=== PATIENT | male | born 1935 | race Caucasian/White ===

== ENCOUNTER → 2016-10-28 | Outpatient (REF) | payer MEDICARE, OTHER ==
[2016-10-28 12:53] LABS: ANION GAP 6 MEQ/L (8-16); BLOOD UREA NITROGEN 24 MG/DL (7-18); CALCIUM LEVEL 8.9 MG/DL (8.8-10.2); CARBON DIOXIDE LEVEL 32 MEQ/L (21-32); CHLORIDE LEVEL 103 MEQ/L (98-107); GLOMERULAR FILTRATION RATE > 60.0 (>42); GLUCOSE, FASTING 131 MG/DL (83-110); SODIUM LEVEL 141 MEQ/L (136-145)
== END ==
LOC: M SFHCPLAZ 07:51
PROVIDERS: ATTEND Family Medicine
DX: E11.311 Type 2 diabetes mellitus with unspecified diabetic retinopathy with macular edema (principal); Z12.5 Encounter for screening for malignant neoplasm of prostate
CPT/HCPCS: 36415; 80048; 83036; G0103

== ENCOUNTER → 2017-05-01 | Outpatient (REF) | payer MEDICARE, OTHER ==
[~2017-05-01] MED LIST: ASPI1TAB PO; CARV6.25 PO; COMB0.2S OD; INDA25TAB PO; INSUN SC; INSUR SC; LATA5OPD OU; LOVA40TA PO; MULT1TAB10 PO; NOVO1INJ4 SC; RAMI25CA PO; VITA500T PO
[2017-05-01 12:11] LABS: MEAN CORPUSCULAR HEMOGLOBIN 28.4 pg (27.0-33.0); MEAN CORPUSCULAR HGB CONC 34.2 g/dl (32.0-36.5); MEAN CORPUSCULAR VOLUME 82.9 fl (80.0-96.0); RED CELL DISTRIBUTION WIDTH 14.3 % (11.5-14.5); WHITE BLOOD COUNT 6.4 K/mm3 (4.0-10.0)
[2017-05-01 12:40] LABS: ALBUMIN/GLOBULIN RATIO 1.43 (1.00-1.93); ALKALINE PHOSPHATASE 112 U/L (45-117); ALT/SGPT 22 U/L (12-78); ANION GAP 7 MEQ/L (8-16); AST/SGOT 8 U/L (15-37); BILIRUBIN,TOTAL 1.1 MG/DL (0.2-1.0); BLOOD UREA NITROGEN 25 MG/DL (7-18); CALCIUM LEVEL 9.2 MG/DL (8.8-10.2); CARBON DIOXIDE LEVEL 31 MEQ/L (21-32); CHLORIDE LEVEL 102 MEQ/L (98-107); CHOLESTEROL LEVEL 109 MG/DL (<200); CREATININE FOR GFR 1.14 MG/DL (0.70-1.30); GLOMERULAR FILTRATION RATE > 60.0 (>42); GLUCOSE, FASTING 157 MG/DL (83-110); POTASSIUM SERUM 4.2 MEQ/L (3.5-5.1); SODIUM LEVEL 140 MEQ/L (136-145); TOTAL PROTEIN 6.8 GM/DL (6.4-8.2); TRIGLYCERIDES LEVEL 97 MG/DL (<150)
== END ==
LOC: M SFHCPLAZ 07:50
PROVIDERS: ATTEND Family Medicine
DX: I25.10 Atherosclerotic heart disease of native coronary artery without angina pectoris (principal); E78.2 Mixed hyperlipidemia; E11.311 Type 2 diabetes mellitus with unspecified diabetic retinopathy with macular edema

== ENCOUNTER 2017-05-20 08:08 | Day surgery (SDC) | payer MEDICARE, BC, OTHER ==
[~2017-05-20] VITALS: Ht 177.8 cm; Wt 101.2 kg
[~2017-05-20 08:08] MED LIST changes: +ACETAMINOPHEN 325 MG TAB PO PRN
[2017-05-20] MEDS ORDERED: LIDOCAINE 1% SDV 5 ML VIAL SC ONE (09:00)
[2017-05-20] MEDS: LIDOCAINE 3.5 % 1ML OPHTH TOPICAL GEL OU ONE (09:07)
[2017-05-20] MEDS: LR 500 ML IV ONE (09:08)
[2017-05-20] MEDS: CYCLOPENTOLATE 2% OPHTH SOLN 2ML BTL XX ONE (09:08)
[2017-05-20] MEDS: PHENYLEPHRINE 2.5% OPHTH SOL 2ML XX ONE (09:08)
[2017-05-20] MEDS: TROPICAMIDE 1% OPHTH SOLN 2ML XX ONE (09:08)
[2017-05-20] MEDS: OFLOXACIN 0.3 % (OCUFLOX) OPTH SOL 5ML XX ONE (09:08)
[2017-05-20] MEDS ORDERED: fentaNYL 100 MCG/2 ML INJECTION (J3010) As Ordered ONE (10:21)
[2017-05-20] MEDS ORDERED: MIDAZOLAM INJ 2 MG/2 ML VIAL (J2250) As Ordered ONE (10:21)
[2017-05-20] MEDS: POVIDONE-IODINE 5% OPHTH PREP SOL 30ML As Ordered ONE (10:37)
[2017-05-20] MEDS: LIDOCAINE 1% SDV 5 ML VIAL As Ordered ONE (10:37)
[2017-05-20] MEDS: BSS with VANC/TOB/EPI for EYE CASES IR ONE (10:38)
[2017-05-20] MEDS: CEFUROXIME 1MG/0.1ML INTRACAMERAL INJ As Ordered ONE (10:38)
[2017-05-20] MEDS: HEALON DUET (HEALON 10MG/ML 0.55ML & HEALON ENDOCOAT 30MG/ML 0.85ML) As Ordered ONE ×2 (10:38→10:39)
[2017-05-20] MEDS ORDERED: TRIMETHOBENZAMIDE 300 MG CAP PO PRN (11:00)
[2017-05-20] MEDS: PROPARACAINE 0.5% OPHTH SOL 15ML XX PRN (11:10)
[2017-05-20] MEDS: KETOROLAC 0.5% OPHTH SOLN XX ONE (11:10)
[2017-05-20] MEDS: AcetaZOLAMIDE 500 MG ER CAP PO ONE (11:10)
[2017-05-20 11:20] VITALS: BP 118/53
--- NOTE | 2017-05-21 13:17 | RO ---
DATE OF PROCEDURE: 05/20/2017 PREOPERATIVE DIAGNOSES: Cataract, glaucoma right eye. POSTOPERATIVE DIAGNOSES: Cataract, glaucoma right eye. PROCEDURE: SURGEON: Nanda Rob MD BUS GREASER: None. ANESTHESIA: Local, IV standby. COMPLICATIONS: None. DESCRIPTION OF PROCEDURE: The patient was brought to the operating room, laid in supine position. The right eye was prepped and draped in a sterile fashion for opthalmic surgery, and a lid speculum was placed. Sideport incision was then made, and EndoCoat was injected into the anterior chamber. A temporal clear corneal incision was then made with a 2.5 mm keratome, and capsulorrhexis was carried out. Patient had a very high posterior chamber pressure and also, because of hyperopia, the chamber was very shallow. At the end of the capsulorrhexis, hydrodissection and phacoemulsification was done in a [id number] method. Throughout the procedure, we had to use some extra Healon to maintain the chamber. At the end of the phacoemulsification, excess cortical material was then aspirated. Intraocular lens placed in the capsular bag. A small amount of zonular dialysis were noted for 1-1/2 to 2-o'clock hours inferiorly, and the lens as rotated so that the haptics were sitting along the axis of the zonular dialysis inferiorly. After this, Healon was placed in the ciliary sulcus; and under direct visualization, endocyclophotocoagulation done with the help of the EndoProbe at 0.25 mV for 280 degrees. Good results were noted as seen by shrinking of the ciliary processes. Healon was then placed into the anterior chamber to visualize the inferonasal trabecular meshwork and with the patient's head turned away from the surgeon under high magnification with the help of the goniolens, the iStent Glaukos was placed and good blood reflex was noted. Excess viscoelastic was then aspirated. Intraocular lens (IOL) was noted to be in excellent position. Wound was hydrated, and intracameral moxifloxacin was given at the end of the case. Wounds were tested for leaks, and no leaks were noted.
== END 2017-05-20 11:40 | disposition home or self-care (01) ==
LOC: M SDC 08:08
PROVIDERS: ATTEND Ophthalmology
DX: H26.9 Unspecified cataract (principal); H40.9 Unspecified glaucoma; I25.10 Atherosclerotic heart disease of native coronary artery without angina pectoris; I10 Essential (primary) hypertension; E11.9 Type 2 diabetes mellitus without complications; M12.9 Arthropathy, unspecified; Z79.899 Other long term (current) drug therapy; Z79.82 Long term (current) use of aspirin; Z79.4 Long term (current) use of insulin; Z87.891 Personal history of nicotine dependence; Z95.5 Presence of coronary angioplasty implant and graft

== ENCOUNTER → 2017-10-30 | Outpatient (REF) | payer MEDICARE, OTHER ==
[2017-10-30 12:24] LABS: ESTIMATED AVERAGE GLUCOSE 134 MG/DL (60-110); HEMOGLOBIN A1c 6.3 %
[2017-10-30 12:26] LABS: ALBUMIN/GLOBULIN RATIO 1.38 (1.00-1.93); ALKALINE PHOSPHATASE 116 U/L (45-117); ALT/SGPT 20 U/L (12-78); ANION GAP 2 MEQ/L (8-16); AST/SGOT 9 U/L (7-37); BILIRUBIN,TOTAL 0.8 MG/DL (0.2-1.0); BLOOD UREA NITROGEN 32 MG/DL (7-18); CALCIUM LEVEL 8.8 MG/DL (8.8-10.2); CARBON DIOXIDE LEVEL 35 MEQ/L (21-32); CHLORIDE LEVEL 103 MEQ/L (98-107); CHOLESTEROL LEVEL 106 MG/DL (<200); CHOLESTEROL RISK RATIO 3.212 (<5); CREATININE FOR GFR 1.19 MG/DL (0.70-1.30); GLOMERULAR FILTRATION RATE > 60.0 (>35); GLUCOSE, FASTING 124 MG/DL (70-100); HDL CHOLESTEROL 33 MG/DL (>40); LDL CHOLESTEROL 55.4 MG/DL (<100); NON-HDL-C 73 MG/DL; POTASSIUM SERUM 3.9 MEQ/L (3.5-5.1); PSA SCREENING 3.42 NG/ML (< 4.0); SODIUM LEVEL 140 MEQ/L (136-145); TOTAL PROTEIN 6.9 GM/DL (6.4-8.2); TRIGLYCERIDES LEVEL 88 MG/DL (<150)
== END ==
LOC: M SFHCPLAZ 07:35
DX: E11.311 Type 2 diabetes mellitus with unspecified diabetic retinopathy with macular edema (principal); I25.10 Atherosclerotic heart disease of native coronary artery without angina pectoris; Z12.5 Encounter for screening for malignant neoplasm of prostate
CPT/HCPCS: 80053

== ENCOUNTER → 2017-11-09 | Outpatient (REF) | payer MEDICARE, OTHER ==
[2017-11-09 12:31] LABS: CREATININE, URINE 70.6 MG/DL; MALB URINE SIEMENS 8.2 MG/L; MAU/CREAT RATIO 11.6 MCG/MG (0.0-30.0)
== END ==
LOC: M SFHCPLAZ 11:27
DX: E11.311 Type 2 diabetes mellitus with unspecified diabetic retinopathy with macular edema (principal)
CPT/HCPCS: 82043

== ENCOUNTER → 2018-05-26 | Outpatient (REF) | payer MEDICARE, OTHER ==
[2018-05-26 12:31] LABS: ANION GAP 9 MEQ/L (8-16); BLOOD UREA NITROGEN 24 MG/DL (7-18); CALCIUM LEVEL 8.8 MG/DL (8.8-10.2); CARBON DIOXIDE LEVEL 28 MEQ/L (21-32); CHLORIDE LEVEL 103 MEQ/L (98-107); CREATININE FOR GFR 1.22 MG/DL (0.70-1.30); GLOMERULAR FILTRATION RATE > 60.0 (>35); GLUCOSE, FASTING 162 MG/DL (70-100); POTASSIUM SERUM 3.7 MEQ/L (3.5-5.1); SODIUM LEVEL 140 MEQ/L (136-145)
[2018-05-26 16:45] LABS: ESTIMATED AVERAGE GLUCOSE 134 MG/DL (60-110); HEMOGLOBIN A1c 6.3 %
== END ==
LOC: M SFHCCLAY 07:14
DX: E11.311 Type 2 diabetes mellitus with unspecified diabetic retinopathy with macular edema (principal)
CPT/HCPCS: 83036

== ENCOUNTER → 2018-11-23 | Outpatient (REF) | payer MEDICARE, OTHER ==
[~2018-11-23] MED LIST changes: -ACETAMINOPHEN 325 MG TAB PO PRN; +RAMI1CAP22 PO; -RAMI25CA PO
[2018-11-23 11:52] LABS: HEMATOCRIT 45.7 % (42.0-52.0); HEMOGLOBIN 14.9 g/dl (13.5-17.5); MEAN CORPUSCULAR HGB CONC 32.6 g/dl (32.0-36.5); MEAN CORPUSCULAR VOLUME 82.9 fl (80.0-96.0); PLATELET COUNT, AUTOMATED 168 10^3/uL (150-450); RED BLOOD COUNT 5.51 10^6/uL (4.30-6.10)
[2018-11-23 12:05] LABS: ALBUMIN 3.9 GM/DL (3.2-5.2); ALT/SGPT 24 U/L (12-78); BILIRUBIN,TOTAL 0.6 MG/DL (0.2-1.0); BLOOD UREA NITROGEN 25 MG/DL (7-18); CALCIUM LEVEL 8.9 MG/DL (8.8-10.2); CARBON DIOXIDE LEVEL 32 MEQ/L (21-32); CHLORIDE LEVEL 104 MEQ/L (98-107); CHOLESTEROL LEVEL 118 MG/DL (<200); CHOLESTEROL RISK RATIO 4.068 (<5); CREATININE FOR GFR 1.19 MG/DL (0.70-1.30); GLOMERULAR FILTRATION RATE > 60.0 (>35); GLUCOSE, FASTING 138 MG/DL (70-100); HDL CHOLESTEROL 29 MG/DL (>40); LDL CHOLESTEROL 68 MG/DL (<100); NON-HDL-C 89 MG/DL; POTASSIUM SERUM 4.1 MEQ/L (3.5-5.1); SODIUM LEVEL 140 MEQ/L (136-145); TOTAL PROTEIN 6.9 GM/DL (6.4-8.2); TRIGLYCERIDES LEVEL 105 MG/DL (<150)
[2018-11-23 13:37] LABS: HEMOGLOBIN A1c 6.9 %
== END ==
LOC: M SFHCCLAY 07:11
PROVIDERS: ATTEND Family Medicine
DX: Z12.5 Encounter for screening for malignant neoplasm of prostate (principal); I25.10 Atherosclerotic heart disease of native coronary artery without angina pectoris; E11.311 Type 2 diabetes mellitus with unspecified diabetic retinopathy with macular edema; E11.649 Type 2 diabetes mellitus with hypoglycemia without coma
CPT/HCPCS: 80053; 80061; 83036; 85027; G0103

== ENCOUNTER → 2019-05-25 | Outpatient (REF) | payer MEDICARE, OTHER ==
[~2019-05-25] MED LIST changes: -ASPI1TAB PO; +ASPI81TA26 PO; +LATA0.0013 OU; -LATA5OPD OU
[2019-05-25 11:44] LABS: CALCIUM LEVEL 9.2 MG/DL (8.8-10.2); CREATININE FOR GFR 1.29 MG/DL (0.70-1.30); GLOMERULAR FILTRATION RATE 56.9 (>35); POTASSIUM SERUM 3.9 MEQ/L (3.5-5.1)
[2019-05-25 12:06] LABS: HEMOGLOBIN A1c 6.6 %
[2019-05-25 12:50] LABS: CREATININE, URINE 68.6 MG/DL; MALB URINE SIEMENS 47.6 MG/L; MAU/CREAT RATIO 69.3 MCG/MG (0.0-30.0)
== END ==
LOC: M SFHCCLAY 08:27
PROVIDERS: ATTEND Family Medicine
DX: E11.311 Type 2 diabetes mellitus with unspecified diabetic retinopathy with macular edema (principal)

== ENCOUNTER 2019-07-09 11:26 | Day surgery (SDC) | payer MEDICARE, BC, OTHER ==
[~2019-07-09] VITALS: Ht 177.8 cm; Wt 100.6 kg
[2019-07-09] MEDS ORDERED: COMB0.2S OP (11:45)
[2019-07-09] MEDS ORDERED: XALA0.007 OS (11:45)
[2019-07-09] MEDS ORDERED: NOVO1INJ4 SC (11:45)
--- NOTE | 2019-07-09 12:04 | REP ---
Clinical: Acute chest pain . Comparison: 07/25/2008 . Findings: The mediastinum and cardiac silhouette are stable and within normal limits for portable technique. Prior sternotomy. The lung mock demonstrate chronic bibasilar changes without acute consolidation, effusion, or pneumothorax. Skeletal structures are intact. Impression: Chronic-appearing changes. Electronically Signed by He Valencia MD 07/09/2019 11:56 A
[2019-07-09 12:17] LABS: BASO # 0.1 10^3/uL (0.0-0.2); BASO % 0.9 % (0.0-1.0); EOS # 0.2 10^3/uL (0.0-0.5); HEMATOCRIT 48.8 % (42.0-52.0); HEMOGLOBIN 16.1 g/dl (13.5-17.5); LYMPH # 0.9 10^3/uL (1.5-5.0); LYMPH % 11.6 % (24.0-44.0); MEAN CORPUSCULAR HEMOGLOBIN 27.6 pg (27.0-33.0); MEAN CORPUSCULAR VOLUME 83.6 fl (80.0-96.0); MONO # 0.5 10^3/uL (0.0-0.8); MONO % 6.6 % (0.0-5.0); NEUTROPHILS % 77.3 % (36.0-66.0); PLATELET COUNT, AUTOMATED 131 10^3/uL (150-450); RED BLOOD COUNT 5.84 10^6/uL (4.30-6.10); WHITE BLOOD COUNT 7.8 10^3/uL (4.0-10.0)
[2019-07-09 12:45] LABS: ALBUMIN 3.8 GM/DL (3.2-5.2); BILIRUBIN,DIRECT 0.2 MG/DL (0.0-0.2); BILIRUBIN,TOTAL 0.7 MG/DL (0.2-1.0); CALCIUM LEVEL 8.8 MG/DL (8.8-10.2); CK-MB VALUE MASS 1.5 NG/ML (<3.6); CREATININE FOR GFR 1.28 MG/DL (0.70-1.30); GLOMERULAR FILTRATION RATE 57.3 (>35); MB/CK RELATIVE INDEX 2.68 (< OR =4); TOTAL PROTEIN 6.7 GM/DL (6.4-8.2); TROPONIN I 0.03 NG/ML (< 0.10)
[2019-07-09] MEDS ORDERED: GI COCKTAIL 50ML BTL(HYOSCYAMINE/MAALOX/LIDOCAINE VISCOUS)(1:3:1) PO ONE (12:45)
[2019-07-09] MEDS ORDERED: propofoL 200 MG/20 ML VIAL As Ordered ONE ×2 (14:18→16:00)
[2019-07-09] MEDS ORDERED: ONDANSETRON 4MG/2ML VIAL (J2405) As Ordered ONE (14:18)
[2019-07-09] MEDS ORDERED: LIDOCAINE 2% INJ 100 MG/5 ML SDV (FOR ANES.) As Ordered ONE (14:18)
[2019-07-09] MEDS ORDERED: fentaNYL 100 MCG/2 ML INJECTION (J3010) As Ordered ONE (14:20)
[2019-07-09] MEDS ORDERED: VITMTA PO (14:28)
[2019-07-09] MEDS ORDERED: NOVOINJ12 SC (14:28)
[2019-07-09] MEDS ORDERED: LOTE0.5S OS (14:30)
[2019-07-09] MEDS ORDERED: VITA-144 PO (14:30)
[2019-07-09] MEDS ORDERED: PREDOPD OS (14:30)
[2019-07-09] MEDS ORDERED: LIDOCAINE 1% SDV INJ 30 ML VIAL As Ordered ONE (14:47)
[2019-07-09] MEDS ORDERED: MIDAZOLAM INJ 2 MG/2 ML VIAL (J2250) As Ordered ONE (14:50)
[2019-07-09] MEDS ORDERED: ceFAZolin 2 GM/D5W 50 ML IV BAG (J0690 PER 500MG) As Ordered ONE (14:58)
[2019-07-09] MEDS ORDERED: ceFAZolin 2 GM/D5W 50 ML IV BAG (J0690 PER 500MG) IV ONE (15:29)
--- NOTE | 2019-07-09 16:03 | CR ---
CARDIOLOGY CONSULT DATE OF CONSULTATION: 07/09/2019 REFERRING PHYSICIAN: Dr. Bruce Tang INDICATION: Chest discomfort, palpitations, increasing fatigue and high-grade arteriovenous (AV) block. HISTORY: This 84-year-old , resident of [place], [place], has been followed by Dr. Randolph and Dr. Moncada for multiple medical problems including hypertension and ischemic heart disease. He is status post coronary artery bypass graft (CABG) times five in 2016. 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 Had been able to do his own housework and shopping. Only drives short distances. Had been free of any chest discomfort, shortness of breath since his bypass surgery, with a pharmacological stress study at [facility] September 2018, showing a favorable coronary prognosis. Over the course of the past several months, he has been aware of fleeting chest irregularities and associated increasing ease of fatigue. Has had no more than momentary positional lightheadedness. No actual falls or loss of consciousness. During recent surgery, he was found to have intermittent high-grade AV block with heart rates dipping down to as low as 30 beats per minute. Subsequent Holter monitor 06/15/2019, [facility], showed underlying sinus rhythm with Mobitz type 1 and type 2 second-degree AV block and periods of complete heart block with observed heart rate range from 31-83 bpm. Rare premature atrial contractions (PACs), but no premature ventricular contractions (PVCs) or tachycardia. With these findings, the patient had been referred to our cardiology office and was scheduled for consultation later this week. However, upon awakening this morning, he began experiencing a vague, retrosternal burning sensation (unlike his anginal pain in 2016) that would come and go associated with infrequent sensory regularity. His daughter had driven him and he was able to walk into the emergency room. Initial vital signs showed a pulse rate of 52 beats per minute, with blood pressure 249/110, respiratory 18, oxygen saturation 92%. Initial EKG at 11:44 a.m. showed underlying sinus rhythm at 80 bpm, with second-degree AV block, Mobitz type 1 and ventricular rate averaging 58 beats per minute, isolated PVC. While on conveyor monitor, at approximately 1:00 p.m., confirmed with EKG at 01:22 p.m., he developed 2:1 AV conduction with ventricular rate of only 33 beats per minute. At this point, my cardiology service was contacted for urgent permanent pacemaker implant. At this point, the patient continues to have a vague intermittent chest burning sensation that lasts seconds at a time. It is not affected by deep breath, cough, swallowing and did not respond to Cici Langford taken earlier today. The patient has no history of hiatal hernia or gastroesophageal reflux. Sensation was quite different from his presentation in 2016. His unstable angina at that time was a retrosternal pressure that persisted. Since his bypass surgery, he has been free of any recurrence. The patient is unaware of an abnormal EKG other than just recently. As mentioned, chiefly limited by his visual disturbance. Has not been short of breath. Denies orthopnea or nocturnal dyspnea. Longstanding bilateral lower leg swelling, but no history of heart failure. Chronic hypertension. Unaware of any heart murmur. 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 No history of claudication. CORONARY RISK FACTORS: 1. Male gender. 2. Advanced age. 3. Prior 50-year pipe smoker, stopped ten years ago. 4. Hypertension since his 50s. 5. Hypercholesterolemia. 6. 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 No documented carotid vascular disease. FAMILY HISTORY: Not applicable. OTHER PAST MEDICAL/SURGICAL HISTORY: Longstanding weight problem and despite his smoking history, no significant chronic obstructive pulmonary disease (COPD). Echocardiogram 06/13/2019 showed a slightly hypertrophied left ventricle with reported ejection fraction of 40-50%, but no mention of localized wall motion abnormality? Left atrium and right heart chambers reportedly normal. Normal aortic root diameter. Aortic valvular sclerosis without functional abnormality. Normal-appearing mitral valve with mild regurgitation. No pericardial effusion. Visual disturbance and bypass surgery as mentioned above. No other surgeries. SYSTEMS REVIEW: Denies any fever, chills or weight loss. Reduced visual acuity, as mentioned. Reduced auditory acuity, wearing bilateral hearing aids. Has false teeth. Currently denies cough, sputum production or hemoptysis. Unaware of prior history of pneumonia. Good appetite with no dysphagia, abdominal pain, gastrointestinal (GI) bleeding. Occasional nocturia, but no dysuria or hematuria. Denies arthritic complaints. With his weight problem, has had chronic lower leg swelling. No known phlebitis. All other systems review is negative. MEDICATIONS: - He had been on carvedilol, but this agent was discontinued by Dr. Moncada following his will to monitor - Ramipril 2.5 mg daily - indapamide 2.5 mg daily - lovastatin 40 mg at bedtime - aspirin 81 mg daily - insulin NPH and regular, 70/30 36 units subcutaneous daily - ascorbic acid 5 mg daily - multivitamin one tablet daily - Latanoprost 0.005% eye drops, one drop left eye at bedtime. - prednisolone acetate eye drops 1% one drop left eye four times a day - loteprednol 0.5% eye drops one drop left eye three times a day - insulin regular NovoLog 6 units subcutaneous daily at bedtime - vitamin D3 1000 units by mouth daily ALLERGIES: None known. PHYSICAL EXAMINATION: CONSTITUTIONAL: Overweight, slightly barrel-chested, pleasant elderly male laying comfortably at this time. VITAL SIGNS: Heart rate varying from 33-78, blood pressure 197/70, respiratory rate 16, oxygen saturation 92% on room air. Afebrile. Height 5 feet 10 inches, weight 225 pounds EYES: Bilateral conjunctival injection. No pallor or icterus. No xanthelasma. ENT/MOUTH: Upper and lower dentures. Normal oral moisture. No central cyanosis. NECK: Trachea midline. Thyroid not enlarged. Jugular veins were not elevated. RESPIRATORY: Increased anteroposterior chest diameter with adequate chest expansion and good air entry over both lung mock. No current abnormal pulmonary adventitious sounds. Well-healed sternotomy incision. CARDIOVASCULAR: Apical impulse not palpable. Heart sounds slightly distant and variable. Has a variable S4 gallop and soft systolic ejection murmur left sternal border and right base to the base of his neck. Normal carotid upstrokes and volume. Transmitted bruit. Upper extremity and femoral pulses were symmetrical and normal. Pedal pulses were slightly reduced. Abdominal aorta not palpable. No abdominal bruits. Has pitting edema one third up both lower legs. Few dilated superficial venules. GASTROINTESTINAL (GI): Overweight, nontender abdomen. No hepatosplenomegaly. RECTAL EXAMINATION: Not indicated. MUSCULOSKELETAL: No obvious joint deformities. Normal-appearing muscular strength and tone. Gait was not assessed at this time. Spine curvature was normal. SKIN: Some degenerative changes to skin of both lower legs, but no pallor, icterus or rash. NEURO/PSYCH: Bright, alert and oriented. Gave me a lucid history. Eye, facial, extremity movements were symmetrical and normal. No abnormal movements. INVESTIGATIONS: Portable upright chest x-ray reviewed independently shows heart size upper limits of normal given this technique. Obvious sternotomy wire sutures. Calcification and slight unfolding of his thoracic aorta. Pulmonary vasculature appeared to be normal. No localized infiltrate or pleural effusion. Bony structures appear to be normal. EKGs: Tracing dated 05/11/2015, [facility] emergency room, showed sinus bradycardia at 58 bpm with marked first-degree AV block. Incomplete right bundle branch block. Slightly prominent R waves V1-V3. Could not rule out prior inferior infarction or right ventricular hypertrophy (RVH). Tracing at 11:44 today shows again sinus rhythm at 80 bpm with left atrial conduction disturbance. Second-degree AV block, Mobitz type 1, with ventricular rate averaging 58 bpm. Isolated PVC. Prominent voltage aVL consistent with left ventricular hypertrophy (LVH) by Gerald criteria. Right bundle branch block. Lateral ST/T-wave abnormalities. Followup tracing 1322 hours was similar except for 2:1 AV conduction with ventricular rate to 33 bpm. BLOOD WORK: Hemoglobin 16.1, with normal white blood cell count and platelet count. Chemistry confirmed electrolyte balance, with BUN 25, creatinine 1.28. Random glucose 204. Liver function studies were normal. Troponin I level was 0.03 with negative CPK. Pro-BNP level was normal at 132. Serum albumin 3.8. Serial prior thyroid stimulating hormone levels have been normal. IMPRESSION/PLAN: 1. High-grade AV block: Undoubtedly, this has contributed to his ease of fatigue and sense of irregularity in his chest. Well documented high-grade AV block without potentially reversible contributing factor. We have recommended urgent permanent dual-chamber pacemaker implantation under monitored local anesthesia. The indication, procedure and potential risks were discussed with the patient and his daughter, who appear to understand and agree. We will arrange for this as quickly as possible. 2. Chest pain (other): A strange retrosternal burning sensation occurring intermittently, possibly related to his rhythm disturbance and impressive compensatory hypertension. Serial EKG showed no evolutionary repolarization change and Troponin I is negative. We will continue to monitor this, but we are planning on resuming his carvedilol beta-dm therapy following his pacemaker implant. 3. Abnormal EKG: Evidence of conduction tissue disease, as well as left ventricle hypertrophy due to his longstanding hypertension. No serial repolarization change of mention. 4. Hypertensive heart disease (benign without heart failure): Limited by his visual disturbance. No symptoms or signs of congestion. Current systolic hypertension a reflection of his bradyarrhythmia. I have no doubt that once his rhythm is restored, i.e. a consistent AV sequential contraction, his pulse pressure will normalize. We will be able to resume his customary carvedilol along with his ramipril and indapamide. I have discussed my impressions and plans with the patient, who appears to understand and agree.
[2019-07-09] MEDS ORDERED: ACETAMINOPHEN TAB 650MG DOSE (2X325MG) PO PRN (16:15)
[2019-07-09] MEDS ORDERED: traMADol 50 MG TAB PO PRN (16:15)
[2019-07-09] MEDS ORDERED: CARVedilol 6.25 MG TAB As Ordered ONE (16:45)
--- NOTE | 2019-07-09 16:45 | REP ---
Clinical: Postoperative evaluation. Comparison: 07/09/2019. Findings: Cardiac silhouette is stable. Evidence for prior sternotomy unchanged. Pacemaker now identified. No acute consolidation, effusion, or pneumothorax. Linear scarring at the left lower lung zone unchanged. Skeletal structures are intact. Impression: Status post dual lead pacemaker placement. Electronically Signed by He Valencia MD 07/09/2019 04:36 P
[2019-07-09] MEDS ORDERED: ONDANSETRON 4MG/2ML VIAL (J2405) IV PRN (17:00)
[2019-07-09] MEDS ORDERED: GLUCOSE 4 GM CHEW TABLET PO PRN (17:00)
[2019-07-09] MEDS: prednisoLONE ACET 1% OPHTH SUSP 5ML OS SCH ×2 (17:00→21:00)
[2019-07-09] MEDS ORDERED: DEXTROSE 50% 50 ML SYRINGE IV PRN (17:00)
[2019-07-09] MEDS ORDERED: GLUCAGON FOR INJ 1 MG VIAL (J1610) SC PRN (17:00)
[2019-07-09] MEDS ORDERED: fentaNYL 100 MCG/2 ML INJECTION (J3010) IV PRN (17:00)
[2019-07-09 17:15] VITALS: BP 220/104
[2019-07-09] MEDS ORDERED: HumuLIN N INSULIN (NovoLIN N) PER UNIT SC SCH (17:30)
[2019-07-09] MEDS ORDERED: SLF 3 ML SYR IV PRN (17:45)
[2019-07-09] MEDS ORDERED: CARVedilol 6.25 MG TAB PO SCH (18:00)
[2019-07-09 20:00] VITALS: BP 196/108
[2019-07-09] MEDS ORDERED: CARVedilol 12.5 MG TAB PO ONE (20:45)
[2019-07-09] MEDS ORDERED: ATORVASTATIN 20 MG TAB PO SCH (21:00)
[2019-07-09] MEDS ORDERED: LATANOPROST 0.005% OPHTH SOLN 2.5 ML OS SCH (21:00)
[2019-07-09] MEDS: HumaLOG INSULIN (NovoLOG) PER UNIT SC SCH (21:18)
[2019-07-09] MEDS ORDERED: amLODIPine 10 MG TAB PO ONE (22:15)
[2019-07-09] MEDS: SLF 3 ML SYR IV SCH (22:38)
[2019-07-09] MEDS: ceFAZolin SOD 1 GM in D5W MINI-BAG PLUS 50 ML IV SCH (22:38)
[2019-07-09] MEDS: CARVedilol 12.5 MG TAB PO SCH (23:57)
[2019-07-10] VITALS: BP 160/92
[2019-07-10 04:00] VITALS: BP 130/90
[2019-07-10] MEDS: ceFAZolin SOD 1 GM in D5W MINI-BAG PLUS 50 ML IV SCH (06:21)
[2019-07-10] MEDS: CARVedilol 12.5 MG TAB PO SCH ×2 (06:22→13:07)
[2019-07-10] MEDS: SLF 3 ML SYR IV SCH (06:22)
--- NOTE | 2019-07-10 06:32 | RO ---
DATE OF PROCEDURE: 07/09/2019 PROCEDURE: Implantation of permanent dual-chamber pacemaker. IMPLANTING UPPER LEATHER SORTER: Dr. Tirso Shrap ANESTHESIOLOGIST: Dr. Stark PREOPERATIVE DIAGNOSIS: High-grade AV block. POSTOPERATIVE DIAGNOSIS: High-grade AV block. TYPE OF ANESTHESIA: Monitored local anesthesia. DESCRIPTION OF PROCEDURE: With the patient in the fasting state having signed informed consent and having received Ancef 2 grams IV premedication, he was taken to the operating theater. Numerous skin electrodes were applied to facilitate continuous electrocardiographic monitoring. Self-adhesive cardioverting/defibrillating pads were applied in an anteroposterior configuration and connected to a bedside cardioverter defibrillator/noninvasive pacing system. The left subclavian region was prepped and draped in usual fashion and the skin was infiltrated with 1% Xylocaine. The left axillary vein was catheterized using the micropuncture technique. A 5 cm linear incision was made several centimeters below and parallel to the left clavicle. Dissection was carried down to the level of the pectoralis fascia and the pocket was fashioned below the level of the incision line. Two bipolar screw-in active fixation steroid eluting pacing leads were then positioned to the distal right ventricular septum and the high right atrial appendage under fluoroscopic electrocardiographic control. The ventricular lead ([employer] model number [id number], serial number [id number]) measurements were: Stimulation threshold 0.4 V/0.4 ms/impedance 638 ohms. The capital R wave amplitude measured 9.9 mV. The atrial lead ([employer] model number [id number], serial number [id number]) measurements were: Stimulation threshold 0.8 V/0.4 ms/impedance 433 ohms. The capital P wave amplitude measured 2.1 mV. These leads were then secured in position with sleeves sutured at their insertion site. There were then connected to a dual-chamber pulse generator that was MRI compatible ([employer] - Cardia, model number [id number], serial number [id number]) and appropriate DDD pacing was documented. The pulse generator was placed in pocket and secured in position with a suture through the upper right-hand corner of the epoxy header. The subcutaneous tissues were then approximated using a running chromic suture and the skin was closed using jimmy. Dry dressing was applied. The patient was returned to the recovery room in good condition. Estimated blood loss less than 10 mL. No apparent complications. Postoperative portable upright chest x-ray showed good lead position with no pneumothorax. His EKG showed underlying sinus rhythm with atrial sensing and tracking with consistent ventricular paced complexes having a normal axis with left bundle branch block pattern in keeping with RV outflow track stimulation. We will be monitoring him overnight and he will receive an additional three doses of Ancef 1 gram every 8 hours. A followup chest x-ray and EKG will be obtained in the morning. We anticipate his discharge before his evening meal.
[2019-07-10] MEDS ORDERED: HumuLIN (NovoLIN)70/30 INSULIN INJ PER UNIT SC SCH (07:30)
[2019-07-10 07:40] VITALS: BP 165/72
--- NOTE | 2019-07-10 08:15 | REP ---
Clinical: Pacemaker placement. Technique: PA and lateral. Comparison: 07/09/2019. Findings: Recently placed pacemaker in stable position. Mediastinum and cardiac silhouette are stable. Linear fibro atelectatic changes at the left base are again identified. No obvious consolidation, effusion, or pneumothorax. Skeletal structures intact. Impression: Status post pacemaker. No obvious consolidation or effusion. Electronically Signed by He Valencia MD 07/10/2019 08:06 A
[2019-07-10] MEDS: prednisoLONE ACET 1% OPHTH SUSP 5ML OS SCH ×3 (08:58→13:00)
[2019-07-10] MEDS ORDERED: ramipriL 5 MG CAP PO SCH (09:00)
[2019-07-10] MEDS ORDERED: INDAPAMIDE 1.25MG TABLET PO SCH (09:00)
--- NOTE | 2019-07-10 11:53 | ECGEPIP ---
[facility] - ED Test Date: 2019-07-09 Pat Name: MARS FISHMAN Department: Room: - Gender: Male Model Photographers': farzaneh : 1935 Requested By: DEE Betancourt Order Number: [id number] Reading MD: Leia Hicks Measurements Intervals [place] Rate: 33 P: [place]: 0 QRS: -6 QRSD: 118 T: 74 QT: 454 QTc: 339 Interpretive Statements SINUS BRADYCARDIA WITH 2ND DEGREE AV BLOCK, MOBITZ TYPE II, CLINICAL CORRELATION ADVISED MODERATE INTRAVENTRICULAR CONDUCTION DELAY MODERATE VOLTAGE CRITERIA FOR LVH, CONSIDER NORMAL VARIANT NONSPECIFIC ST & T-WAVE ABNORMALITY Electronically Signed on 07-10-2019 11:53:21 EST by Leia Hicks
[2019-07-10 12:38] VITALS: BP 148/68
[2019-07-10 13:07] VITALS: BP 148/68
[2019-07-10] MEDS: HumaLOG INSULIN (NovoLOG) PER UNIT SC SCH (13:08)
[2019-07-10] MEDS ORDERED: CARV25TA PO (14:50)
--- NOTE | 2019-07-10 15:21 | IPN ---
CARDIOLOGY PROGRESS NOTE DATE: 07/10/2019 SUBJECTIVE: The patient has been up in the room and has some slight unsteadiness because of his visual problems. Has no more than minor incisional discomfort since his pacemaker implant yesterday. Denies any shortness of breath or anginal chest discomfort. Unaware of his heart action at this time. Appears to be tolerating his adjusted antihypertensive therapy without adverse effect. OBJECTIVE: Pleasant, barrel-chested, overweight elderly male laying comfortably flat. No pallor or cyanosis. Normal oral moisture. Heart rate 60 beats per minute and regular, blood pressure 148/68 supine, respiratory rate 18, oxygen saturation 96% on room air. He is afebrile. Trachea midline. Neck veins were not elevated. Increased anteroposterior chest diameter with adequate respiratory excursion. His dressing was changed and his pacemaker incision appears to be healing well without erythema, swelling or discharge. The pedal edema is unchanged from yesterday. INVESTIGATIONS: PA and left lateral chest x-ray: Study performed this morning was reviewed independently and shows heart size upper limits of normal with stable pacing lead position. No pneumothorax. No pulmonary venous congestion, effusion or infiltrate. EKG: Tracing taken this morning reviewed independently shows sinus rhythm at 59 bpm, appropriate atrial sensing and tracking with consistent ventricular pacing. Paced QRS complexes having a normal axis and left bundle branch block pattern in keeping with RV outflow tract stimulation. The appearance is unchanged from yesterday. Complete pacemaker interrogation was performed today ([employer] - Assurity MRI compatible, model number [id number], serial number [id number]). Intracardiac electrograms were excellent and pacing thresholds were wonderful. We were able to activate his atrial capture confirm function. His low pacing rate has been set purposely at 50 bpm to minimize needless atrial pacing. His upper rate limit is 110. Estimated battery longevity at this time is more than 12 years. IMPRESSION/PLAN: 1. Hypertensive heart disease (benign without heart failure): Curiously, despite amish of a normal arteriovenous (AV) sequential contraction pattern, his blood pressure remained quite elevated. We have resumed his carvedilol therapy and had titrated the dose up to 25 mg twice a day. He has been returned on his regular ramipril 5 mg daily and his indapamide to 0.5 mg daily. A prescription for his new dose of carvedilol has been sent to his pharmacy. We requested that he continue to monitor his home blood pressure readings and relay these to us if he has any concerns. 2. Chest pain (other): Strange, intermittent retrosternal burning sensation on presentation associated with his sense of irregularities chest have resolved following pacer implant. As previously mentioned, serial EKGs in the emergency room showed no ST/T-wave changes and Troponin-I levels were negative. 3. High-grade AV block/dual-chamber pacemaker in situ: His pacing incision appears to be healing well. Chest x-ray and EKG confirm stable lead position. Device is performing appropriately. My office will be contacting him tomorrow morning for an appointment for a clinic visit and staple removal in 7-10 days. He has been encouraged to contact us should he notice any abnormal erythema, swelling or discharge. 4. Coronary artery disease ([place] vessel)/post coronary artery bypass graft (CABG) times five: Has remained free of symptomatic myocardial ischemia. Stable EKG pattern and negative Troponin-I levels, as mentioned above. He will now be restarting beta-dm carvedilol therapy and will continue on his protective ramipril 5 mg daily, lovastatin 40 mg daily, and aspirin 81 mg daily. I have requested he perform only light activities of daily living with his left arm until his jimmy are removed in our office. To avoid driving for the time being. He will try and avoid getting his incision wet until his jimmy are removed. Will allow him to go home this afternoon.
--- NOTE | 2019-07-11 21:36 | ECGEPIP ---
[facility] Test Date: 2019-07-09 Pat Name: MARS FISHMAN Department: Room: - Gender: Male Inspector [employer]: : 1935 Requested By: Tirso Sharp Order Number: [id number] Reading MD: Rj Shah Measurements Intervals [place] Rate: 62 P: 28 [place]: 188 QRS: 91 QRSD: 159 T: -80 QT: 455 QTc: 462 Interpretive Statements Normal sinus rhythm Paced ventricular complexes Compared to prior tracing of earlier this date, pacemaker activity is new Electronically Signed on 07-11-2019 21:35:53 EST by Rj Shah
--- NOTE | 2019-07-11 21:39 | ECGEPIP ---
[facility] Test Date: 2019-07-10 Pat Name: MARS FISHMAN Department: Room: O3041-22 Gender: Male Actuarial Manager: RUBY : 1935 Requested By: Tirso Sharp Order Number: [id number] Reading MD: Rj Shah Measurements Intervals [place] Rate: 59 P: 36 RI: 200 QRS: 94 QRSD: 155 T: -73 QT: 466 QTc: 462 Interpretive Statements Sinus bradycardia Paced ventricular complexes Compared to prior tracing of 07/09/2019, heart rate is slower Electronically Signed on 07-11-2019 21:39:33 EST by Rj Shah
== END 2019-07-10 15:47 | disposition home or self-care (01) ==
LOC: M ED 11:26 → M SDC 11:27 → M PCU 17:20 → M SDC 07-10 15:47
PROVIDERS: ATTEND Family Medicine
DX: I44.2 Atrioventricular block, complete (principal); I10 Essential (primary) hypertension; E11.9 Type 2 diabetes mellitus without complications; H40.9 Unspecified glaucoma; I25.10 Atherosclerotic heart disease of native coronary artery without angina pectoris; E78.00 Pure hypercholesterolemia, unspecified; Z79.899 Other long term (current) drug therapy; Z79.4 Long term (current) use of insulin; Z79.82 Long term (current) use of aspirin; Z95.5 Presence of coronary angioplasty implant and graft; Z87.891 Personal history of nicotine dependence
CPT/HCPCS: 33208; 71045; 71046; 80048; 80076; 82550; 82553; 83880; 84484; 85025; 93005; 93041; 94760; 96360; 96372; 99285; C1785; C1898; J0690; J2250; J2405; J3010

== ENCOUNTER → 2020-01-18 | Outpatient (REF) | payer MEDICARE, OTHER ==
[~2020-01-18] MED LIST changes: +CARV25TA PO; +COMB0.2S OP; +LOTE0.5S OS; +NOVOINJ12 SC; +PREDOPD OS; +VITA-144 PO; +VITA-243 PO; -VITA500T PO; +VITMTA PO; +XALA0.007 OS
[2020-01-18 11:42] LABS: BASO # 0.1 10^3/uL (0.0-0.2); BASO % 1.2 % (0.0-1.0); EOS # 0.6 10^3/uL (0.0-0.5); EOS % 7.4 % (0.0-3.0); HEMATOCRIT 48.9 % (42.0-52.0); HEMOGLOBIN 16.3 g/dl (13.5-17.5); LYMPH # 1.1 10^3/uL (1.5-5.0); LYMPH % 14.2 % (24.0-44.0); MEAN CORPUSCULAR HEMOGLOBIN 28.1 pg (27.0-33.0); MEAN CORPUSCULAR HGB CONC 33.3 g/dl (32.0-36.5); MEAN CORPUSCULAR VOLUME 84.2 fl (80.0-96.0); MONO # 0.6 10^3/uL (0.0-0.8); MONO % 8.4 % (0.0-5.0); NEUTROPHILS # 5.1 10^3/uL (1.5-8.5); NEUTROPHILS % 68.3 % (36.0-66.0); PLATELET COUNT, AUTOMATED 146 10^3/uL (150-450); RED BLOOD COUNT 5.81 10^6/uL (4.30-6.10); WHITE BLOOD COUNT 7.5 10^3/uL (4.0-10.0)
[2020-01-18 12:34] LABS: ALBUMIN 4.2 GM/DL (3.2-5.2); ALT/SGPT 25 U/L (12-78); BILIRUBIN,TOTAL 0.9 MG/DL (0.2-1.0); BLOOD UREA NITROGEN 27 MG/DL (7-18); CALCIUM LEVEL 9.4 MG/DL (8.8-10.2); CARBON DIOXIDE LEVEL 31 MEQ/L (21-32); CHLORIDE LEVEL 102 MEQ/L (98-107); CHOLESTEROL LEVEL 126 MG/DL (<200); CHOLESTEROL RISK RATIO 3.705 (<5); CREATININE FOR GFR 1.17 MG/DL (0.70-1.30); GLOMERULAR FILTRATION RATE > 60.0 (>35); GLUCOSE, FASTING 126 MG/DL (70-100); HDL CHOLESTEROL 34 MG/DL (>40); LDL CHOLESTEROL 64 MG/DL (<100); NON-HDL-C 92 MG/DL; SODIUM LEVEL 140 MEQ/L (136-145); TOTAL PROTEIN 7.1 GM/DL (6.4-8.2); TRIGLYCERIDES LEVEL 140 MG/DL (<150)
[2020-01-18 12:40] LABS: MALB URINE SIEMENS 27.8 MG/L; MAU/CREAT RATIO 26.2 MCG/MG (0.0-30.0)
== END ==
LOC: M SFHCCLAY 07:58
PROVIDERS: ATTEND Family Medicine
DX: E11.311 Type 2 diabetes mellitus with unspecified diabetic retinopathy with macular edema (principal); E78.2 Mixed hyperlipidemia; I25.10 Atherosclerotic heart disease of native coronary artery without angina pectoris; Z12.5 Encounter for screening for malignant neoplasm of prostate
CPT/HCPCS: 80053; 80061; 82043; 83036; 85025; G0103

== ENCOUNTER → 2020-07-18 | Outpatient (REF) | payer MEDICARE, OTHER ==
[2020-07-18 12:04] LABS: BLOOD UREA NITROGEN 22 MG/DL (7-18); CALCIUM LEVEL 9.4 MG/DL (8.8-10.2); CARBON DIOXIDE LEVEL 33 MEQ/L (21-32); CHLORIDE LEVEL 101 MEQ/L (98-107); CREATININE FOR GFR 1.11 MG/DL (0.70-1.30); GLOMERULAR FILTRATION RATE > 60.0 (>35); GLUCOSE, FASTING 128 MG/DL (70-100); HEMOGLOBIN A1c 6.5 %; POTASSIUM SERUM 4.2 MEQ/L (3.5-5.1); SODIUM LEVEL 139 MEQ/L (136-145)
== END ==
LOC: M SFHCCLAY 07:05
PROVIDERS: ATTEND Family Medicine
DX: E11.311 Type 2 diabetes mellitus with unspecified diabetic retinopathy with macular edema (principal)

== ENCOUNTER → 2021-07-16 | Outpatient (REF) | payer MEDICARE, OTHER ==
[2021-07-16 12:48] LABS: BLOOD UREA NITROGEN 24 MG/DL (7-18); CARBON DIOXIDE LEVEL 34 MEQ/L (21-32); CHLORIDE LEVEL 101 MEQ/L (98-107); CREATININE FOR GFR 1.11 MG/DL (0.70-1.30); GLOMERULAR FILTRATION RATE > 60.0 (>35); GLUCOSE, FASTING 82 MG/DL (70-100); SODIUM LEVEL 140 MEQ/L (136-145)
[2021-07-16 12:49] LABS: CALCIUM LEVEL 9.2 MG/DL (8.8-10.2)
[2021-07-16 15:24] LABS: HEMOGLOBIN A1c 6.5 %
== END ==
LOC: M SFHCCLAY 07:00
PROVIDERS: ATTEND Family Medicine
DX: E11.311 Type 2 diabetes mellitus with unspecified diabetic retinopathy with macular edema (principal)

== ENCOUNTER 2022-01-07 17:17 | Emergency (ER) | payer MEDICARE, BC, OTHER ==
[~2022-01-07] VITALS: Ht 175.3 cm; Wt 94.0 kg
[2022-01-07 18:56] LABS: BASO # 0.1 10^3/uL (0.0-0.2); EOS # 0.3 10^3/uL (0.0-0.5); EOS % 3.8 % (0.0-3.0); HEMATOCRIT 48.5 % (42.0-52.0); HEMOGLOBIN 16.4 g/dl (13.5-17.5); LYMPH # 1.1 10^3/uL (1.5-5.0); LYMPH % 13.8 % (24.0-44.0); MEAN CORPUSCULAR HEMOGLOBIN 27.5 pg (27.0-33.0); MEAN CORPUSCULAR HGB CONC 33.8 g/dl (32.0-36.5); MEAN CORPUSCULAR VOLUME 81.2 fl (80.0-96.0); MONO # 0.6 10^3/uL (0.0-0.8); MONO % 7.9 % (2.0-8.0); NEUTROPHILS # 5.8 10^3/uL (1.5-8.5); PLATELET COUNT, AUTOMATED 147 10^3/uL (150-450); RED BLOOD COUNT 5.97 10^6/uL (4.30-6.10); WHITE BLOOD COUNT 7.9 10^3/uL (4.0-10.0)
[2022-01-07] MEDS ORDERED: NITR0.4S14 SL (18:56)
[2022-01-07] MEDS ORDERED: COMB0.2S (18:56)
[2022-01-07] MEDS ORDERED: NOXI1TAB PO (18:56)
[2022-01-07 19:19] LABS: ALBUMIN 3.8 GM/DL (3.2-5.2); ALT/SGPT 19 U/L (12-78); BILIRUBIN,TOTAL 0.7 MG/DL (0.2-1.0); BLOOD UREA NITROGEN 27 MG/DL (7-18); CALCIUM LEVEL 9.7 MG/DL (8.8-10.2); CARBON DIOXIDE LEVEL 29 MEQ/L (21-32); CHLORIDE LEVEL 103 MEQ/L (98-107); CREATININE FOR GFR 0.96 MG/DL (0.70-1.30); GLOMERULAR FILTRATION RATE > 60.0 (>35); GLUCOSE, FASTING 106 MG/DL (70-100); POTASSIUM SERUM 3.6 MEQ/L (3.5-5.1); SODIUM LEVEL 141 MEQ/L (136-145); TOTAL PROTEIN 7.1 GM/DL (6.4-8.2)
[2022-01-07 19:32] LABS: CK-MB VALUE MASS 1.6 NG/ML (<3.6); MB/CK RELATIVE INDEX 2.19 (< OR =4)
[2022-01-07] MEDS ORDERED: FUROSEMIDE 40MG/4ML VIAL (J1940) IV ONE (20:05)
[2022-01-07] MEDS ORDERED: CARVedilol 12.5 MG TAB PO ONE (20:05)
[2022-01-07 20:57] VITALS: BP 167/83
[2022-01-07] MEDS ORDERED: CARV12.5 PO (21:47)
[2022-01-07] MEDS ORDERED: CHLO125TA PO (21:56)
[2022-01-07] MEDS ORDERED: RAMI1CAP24 PO (21:56)
[2022-01-07] MEDS ORDERED: SPIR-10 PO (21:56)
[2022-01-07 22:00] VITALS: BP 119/65
== END 2022-01-07 22:12 | disposition home or self-care (01) ==
LOC: EDBD 17:17 → M ED 17:17
DX: I10 Essential (primary) hypertension (principal); E11.9 Type 2 diabetes mellitus without complications; I25.10 Atherosclerotic heart disease of native coronary artery without angina pectoris; E78.5 Hyperlipidemia, unspecified; Z86.73 Personal history of transient ischemic attack (TIA), and cerebral infarction without residual deficits; Z95.1 Presence of aortocoronary bypass graft; Z79.899 Other long term (current) drug therapy; Z79.4 Long term (current) use of insulin; Z79.82 Long term (current) use of aspirin
CPT/HCPCS: 80053; 81001; 82550; 82553; 84484; 85025; 93005; 93041; 96374; 99285; J1940

== ENCOUNTER → 2022-01-15 | Outpatient (REF) | payer MEDICARE, OTHER ==
[~2022-01-15] MED LIST changes: +CARV12.5 PO; +CHLO125TA PO; +COMB0.2S; +NITR0.4S14 SL; +NOXI1TAB PO; +RAMI1CAP24 PO; +SPIR-10 PO
[2022-01-15 11:40] LABS: HEMATOCRIT 48.8 % (42.0-52.0); HEMOGLOBIN 16.1 g/dl (13.5-17.5); MEAN CORPUSCULAR HEMOGLOBIN 27.5 pg (27.0-33.0); MEAN CORPUSCULAR VOLUME 83.3 fl (80.0-96.0); PLATELET COUNT, AUTOMATED 149 10^3/uL (150-450); RED BLOOD COUNT 5.86 10^6/uL (4.30-6.10); WHITE BLOOD COUNT 7.6 10^3/uL (4.0-10.0)
[2022-01-15 12:58] LABS: BILIRUBIN,TOTAL 0.9 MG/DL (0.2-1.0); CALCIUM LEVEL 9.3 MG/DL (8.8-10.2); CHOLESTEROL RISK RATIO 3.212 (<5); CREATININE FOR GFR 1.23 MG/DL (0.70-1.30); FREE T4 1.23 NG/DL (0.76-1.46); GLOMERULAR FILTRATION RATE 59.7 (>35); POTASSIUM SERUM 4.5 MEQ/L (3.5-5.1); THYROID STIMULATING HORMONE 1.62 uIU/ML (0.358-3.740); TOTAL PROTEIN 7.2 GM/DL (6.4-8.2)
[2022-01-15 17:07] LABS: MAU/CREAT RATIO 25.4 MCG/MG (0.0-30.0)
[2022-01-15 21:58] LABS: HEMOGLOBIN A1c 6.6 %
== END ==
LOC: M SFHCCLAY 06:59
PROVIDERS: ATTEND Family Medicine
DX: I25.10 Atherosclerotic heart disease of native coronary artery without angina pectoris (principal); E78.2 Mixed hyperlipidemia; E11.311 Type 2 diabetes mellitus with unspecified diabetic retinopathy with macular edema

== ENCOUNTER → 2022-07-23 | Outpatient (REF) | payer MEDICARE, OTHER ==
[2022-07-23 12:18] LABS: HEMATOCRIT 49.4 % (42.0-52.0); HEMOGLOBIN 16.2 g/dl (13.5-17.5); MEAN CORPUSCULAR HEMOGLOBIN 27.5 pg (27.0-33.0); MEAN CORPUSCULAR HGB CONC 32.8 g/dl (32.0-36.5); MEAN CORPUSCULAR VOLUME 83.7 fl (80.0-96.0); PLATELET COUNT, AUTOMATED 141 10^3/uL (150-450); WHITE BLOOD COUNT 7.4 10^3/uL (4.0-10.0)
[2022-07-23 12:38] LABS: ALBUMIN 3.9 G/DL (3.2-5.2); ALT/SGPT 14 U/L (7.0-40); BLOOD UREA NITROGEN 24 MG/DL (9-23); CALCIUM LEVEL 9.1 MG/DL (8.3-10.6); CARBON DIOXIDE LEVEL 32 MMOL/L (20-31); CHLORIDE LEVEL 102 MMOL/L (98-107); CREATININE FOR GFR 1.04 MG/DL (0.70-1.30); GLOMERULAR FILTRATION RATE > 60.0 (>35); GLUCOSE, FASTING 118 MG/DL (74-106); POTASSIUM SERUM 4.4 MMOL/L (3.5-5.1); SODIUM LEVEL 140 MMOL/L (136-145); TOTAL PROTEIN 6.6 G/DL (5.7-8.2)
[2022-07-23 12:47] LABS: HEMOGLOBIN A1c 6.7 % (4.0-6.0)
== END ==
LOC: M SFHCCLAY 06:53
PROVIDERS: ATTEND Family Medicine
DX: I25.10 Atherosclerotic heart disease of native coronary artery without angina pectoris (principal); E11.311 Type 2 diabetes mellitus with unspecified diabetic retinopathy with macular edema

== ENCOUNTER → 2022-11-07 | Outpatient (CLI) | payer MEDICARE, OTHER | LOC: M ADAMS 10:36 | PROVIDERS: ATTEND Family Medicine | DX: M19.072 Primary osteoarthritis, left ankle and foot (principal); M79.672 Pain in left foot | CPT/HCPCS: 73630; G0463 ==

== ENCOUNTER → 2023-01-29 | Outpatient (REF) | payer MEDICARE, OTHER ==
[2023-01-29 12:31] LABS: CHOLESTEROL RISK RATIO 3.59 (<5); HDL CHOLESTEROL 34.5 MG/DL (>40); LDL CHOLESTEROL 72.3 MG/DL (<100); NON-HDL-C 89.5 MG/DL
[2023-01-29 12:35] LABS: FREE T4 1.19 NG/DL (0.89-1.76)
[2023-01-29 12:36] LABS: THYROID STIMULATING HORMONE 2.569 uIU/ML (0.55-4.78)
[2023-01-29 12:51] LABS: CREATININE, URINE 107.2 MG/DL; MAU/CREAT RATIO 12.1 MCG/MG (0.0-30.0)
== END ==
LOC: M SFHCCLAY 06:57
PROVIDERS: ATTEND Family Medicine
DX: E11.311 Type 2 diabetes mellitus with unspecified diabetic retinopathy with macular edema (principal); Z12.5 Encounter for screening for malignant neoplasm of prostate
CPT/HCPCS: 80061; 82043; 84439; 84443; G0103

== ENCOUNTER 2023-09-17 17:53 | Inpatient (IN) | payer MEDICARE, BC, OTHER ==
[~2023-09-17] VITALS: Ht 170.2 cm; Wt 93.1 kg
[~2023-09-17 17:53] MED LIST changes: -XALA0.007 OS; +XALA0.007 OU
[2023-09-17] MEDS ORDERED: RAMI1CAP24 PO ×2 (18:41→23:21)
[2023-09-17 19:00] LABS: BASO # 0.1 10^3/uL (0.0-0.2); BASO % 1.1 % (0.0-1.0); EOS # 0.3 10^3/uL (0.0-0.5); EOS % 3.7 % (0.0-3.0); HEMATOCRIT 50.2 % (42.0-52.0); HEMOGLOBIN 17.1 g/dl (13.5-17.5); LYMPH # 1.2 10^3/uL (1.5-5.0); LYMPH % 13.8 % (24.0-44.0); MEAN CORPUSCULAR HEMOGLOBIN 27.8 pg (27.0-33.0); MEAN CORPUSCULAR HGB CONC 34.1 g/dl (32.0-36.5); MEAN CORPUSCULAR VOLUME 81.6 fl (80.0-96.0); MONO # 0.6 10^3/uL (0.0-0.8); NEUTROPHILS # 6.6 10^3/uL (1.5-8.5); NEUTROPHILS % 73.8 % (36.0-66.0); PLATELET COUNT, AUTOMATED 167 10^3/uL (150-450); RED BLOOD COUNT 6.15 10^6/uL (4.30-6.10); WHITE BLOOD COUNT 8.9 10^3/uL (4.0-10.0)
[2023-09-17 19:09] LABS: INR 1.08; PROTHROMBIN TIME 13.7 SECONDS (12.5-14.5)
[2023-09-17 19:11] LABS: PARTIAL THROMBOPLASTIN TIME 28.1 SECONDS (24.8-34.2)
[2023-09-17 19:23] LABS: LIPASE 25 U/L (12-53)
[2023-09-17 19:24] LABS: CPK CREATINE PHOSPHOKINASE 54 U/L (46-171)
[2023-09-17 19:25] LABS: ALKALINE PHOSPHATASE 126 U/L (46-116); ALT/SGPT 15 U/L (7.0-40); AST/SGOT 10 U/L (<34); BILIRUBIN,DIRECT 0.3 MG/DL (<0.4); BILIRUBIN,TOTAL 0.7 MG/DL (0.3-1.2); BLOOD UREA NITROGEN 23 MG/DL (9-23); CALCIUM LEVEL 9.5 MG/DL (8.3-10.6); CARBON DIOXIDE LEVEL 32 MMOL/L (20-31); CHLORIDE LEVEL 102 MMOL/L (98-107); CK-MB VALUE MASS 1.1 NG/ML (<3.6); CREATININE FOR GFR 1.02 MG/DL (0.70-1.30); GLOMERULAR FILTRATION RATE > 60.0 (>35); GLUCOSE, FASTING 152 MG/DL (74-106); MB/CK RELATIVE INDEX 2.03 (< OR =4); POTASSIUM SERUM 4.3 MMOL/L (3.5-5.1); SODIUM LEVEL 136 MMOL/L (136-145); TOTAL PROTEIN 7.1 G/DL (5.7-8.2)
[2023-09-17 19:27] LABS: FREE T4 1.17 NG/DL (0.89-1.76); THYROID STIMULATING HORMONE 2.542 uIU/ML (0.55-4.78)
[2023-09-17 19:40] LABS: RSV AMPLIFICATION NEGATIVE (NEGATIVE)
[2023-09-17 20:13] LABS: CK-MB VALUE MASS 1.4 NG/ML (<3.6)
[2023-09-17 20:14] LABS: MB/CK RELATIVE INDEX 2.02 (< OR =4)
[2023-09-17] MEDS ORDERED: ASPIRIN 81MG CHEW TABLET As Ordered ONE (20:19)
[2023-09-17] MEDS ORDERED: ASPIRIN 81MG CHEW TABLET PO ONE (20:20)
[2023-09-17] MEDS ORDERED: ISOVUE-370 76% 100ML VIAL As Ordered ONE (20:21)
[2023-09-17] MEDS ORDERED: HEPARIN SOD (PORCINE) 5000UNITS/ML 1ML VIAL/SYRINGE IV PRN ×2 (21:20→23:05)
[2023-09-17] MEDS ORDERED: HEPARIN DRIP 25,000 UNITS in IV 1 EA IV SCH (21:20)
[2023-09-17] MEDS ORDERED: HEPARIN SOD (PORCINE) 5000UNITS/ML 1ML VIAL/SYRINGE IV ONE (21:20)
[2023-09-17] MEDS ORDERED: cloNIDine 0.1MG TABLET PO ONE (22:15)
[2023-09-17] MEDS ORDERED: DEXTROSE 50% 50ML SYRINGE IV PRN (23:05)
[2023-09-17] MEDS ORDERED: GLUCOSE 4GM CHEW TABLET PO PRN (23:05)
[2023-09-17] MEDS ORDERED: HYDROMORPHONE HCL 0.5 MG/ 0.5 ML SYRINGE IV PRN (23:05)
[2023-09-17] MEDS ORDERED: ACETAMINOPHEN TAB 650MG DOSE (2X325MG) PO PRN (23:05)
[2023-09-17] MEDS ORDERED: ONDANSETRON 4MG 2ML VIAL IV PRN (23:05)
[2023-09-17] MEDS ORDERED: GLUCAGON INJ 1MG VIAL SC PRN (23:05)
[2023-09-17] MEDS ORDERED: COMB0.2S OU (23:10)
[2023-09-17] MEDS ORDERED: CHLO125TA PO (23:21)
[2023-09-17] MEDS ORDERED: SPIR-10 PO (23:21)
[2023-09-17] MEDS ORDERED: NITR4TASL SL (23:21)
[2023-09-17] MEDS ORDERED: INSUN SC (23:21)
[2023-09-17] MEDS ORDERED: NYST1POW9 TOP (23:23)
[2023-09-17] MEDS ORDERED: HOME MED LIST COMPLETE! XX SCH (23:25)
[2023-09-17 23:45] VITALS: BP 134/71; TEMP 97.6; O2SAT 97
[2023-09-18 00:15] LABS: HEMATOCRIT 45.6 % (42.0-52.0); HEMOGLOBIN 15.8 g/dl (13.5-17.5); MEAN CORPUSCULAR HGB CONC 34.6 g/dl (32.0-36.5); MEAN CORPUSCULAR VOLUME 80.7 fl (80.0-96.0); PLATELET COUNT, AUTOMATED 172 10^3/uL (150-450); RED BLOOD COUNT 5.65 10^6/uL (4.30-6.10); WHITE BLOOD COUNT 9.6 10^3/uL (4.0-10.0)
[2023-09-18 03:28] VITALS: BP 148/71; TEMP 96.2; O2SAT 96
[2023-09-18 03:43] LABS: HEMATOCRIT 44.7 % (42.0-52.0); HEMOGLOBIN 15.4 g/dl (13.5-17.5); MEAN CORPUSCULAR HEMOGLOBIN 27.7 pg (27.0-33.0); MEAN CORPUSCULAR HGB CONC 34.5 g/dl (32.0-36.5); MEAN CORPUSCULAR VOLUME 80.5 fl (80.0-96.0); PLATELET COUNT, AUTOMATED 154 10^3/uL (150-450); RED BLOOD COUNT 5.55 10^6/uL (4.30-6.10); WHITE BLOOD COUNT 9.1 10^3/uL (4.0-10.0)
[2023-09-18 04:48] LABS: ALBUMIN 3.2 G/DL (3.2-5.2); ALKALINE PHOSPHATASE 96 U/L (46-116); ALT/SGPT 12 U/L (7.0-40); AST/SGOT 13 U/L (<34); BILIRUBIN,TOTAL 0.8 MG/DL (0.3-1.2); BLOOD UREA NITROGEN 21 MG/DL (9-23); CALCIUM LEVEL 8.5 MG/DL (8.3-10.6); CARBON DIOXIDE LEVEL 28 MMOL/L (20-31); CHLORIDE LEVEL 107 MMOL/L (98-107); CREATININE FOR GFR 0.89 MG/DL (0.70-1.30); GLOMERULAR FILTRATION RATE > 60.0 (>35); GLUCOSE, FASTING 97 MG/DL (74-106); POTASSIUM SERUM 3.8 MMOL/L (3.5-5.1); SODIUM LEVEL 139 MMOL/L (136-145); TOTAL PROTEIN 6.1 G/DL (5.7-8.2)
[2023-09-18] MEDS: INSULIN LISPRO (NovoLOG) PER UNIT SC SCH ×4 (07:30→20:35)
[2023-09-18 07:43] VITALS: BP 162/78; TEMP 96.5; O2SAT 96
[2023-09-18] MEDS ORDERED: NITROGLYCERIN 0.4MG SUBL TABLET SL PRN (07:45)
[2023-09-18] MEDS: CHLORTHALIDONE 12.5MG PER 1/2 TABLET PO SCH (10:44)
[2023-09-18] MEDS: SPIRONOLACTONE 12.5MG PER 1/2 TABLET PO SCH (10:44)
[2023-09-18] MEDS: HumuLIN (NovoLIN)70/30 INSULIN INJ PER UNIT SC SCH (10:45)
[2023-09-18] MEDS: ASCORBIC ACID 500 MG TAB PO SCH (10:45)
[2023-09-18] MEDS: PANTOPRAZOLE 40MG VIAL IV SCH (10:45)
[2023-09-18 12:07] VITALS: BP 144/67; TEMP 96.2; O2SAT 96
[2023-09-18 16:00] VITALS: BP 152/68; TEMP 96.8; O2SAT 96
[2023-09-18] MEDS: HEPARIN DRIP 25,000 UNITS in IV 1 EA IV SCH (17:44)
[2023-09-18 19:27] VITALS: BP 166/75; TEMP 97.1; O2SAT 98
[2023-09-18] MEDS: SIMVASTATIN 20 MG TAB PO SCH (20:57)
[2023-09-18] MEDS: ramipriL 5 MG CAP PO SCH (20:57)
[2023-09-18] MEDS: LATANOPROST 0.005% OPHTH SOLN 2.5 ML OU SCH (20:58)
[2023-09-18] MEDS: HumuLIN N INSULIN (NovoLIN N) PER UNIT SC SCH (21:05)
[2023-09-19] VITALS (8 sets, daily range): BP systolic 127–167; BP diastolic 60–78; TEMP 97–97.5; O2SAT 96–99
[2023-09-19 05:46] LABS: BASO # 0.1 10^3/uL (0.0-0.2); BASO % 1.1 % (0.0-1.0); EOS # 0.2 10^3/uL (0.0-0.5); EOS % 3.2 % (0.0-3.0); HEMATOCRIT 44.8 % (42.0-52.0); HEMOGLOBIN 15.2 g/dl (13.5-17.5); LYMPH # 1.1 10^3/uL (1.5-5.0); LYMPH % 15.2 % (24.0-44.0); MEAN CORPUSCULAR HEMOGLOBIN 27.6 pg (27.0-33.0); MEAN CORPUSCULAR HGB CONC 33.9 g/dl (32.0-36.5); MEAN CORPUSCULAR VOLUME 81.3 fl (80.0-96.0); MONO # 0.7 10^3/uL (0.0-0.8); NEUTROPHILS # 5.3 10^3/uL (1.5-8.5); NEUTROPHILS % 71.1 % (36.0-66.0); PLATELET COUNT, AUTOMATED 153 10^3/uL (150-450); RED BLOOD COUNT 5.51 10^6/uL (4.30-6.10); WHITE BLOOD COUNT 7.5 10^3/uL (4.0-10.0)
[2023-09-19 06:06] LABS: INR 1.22; PROTHROMBIN TIME 15.1 SECONDS (12.5-14.5)
[2023-09-19 06:09] LABS: PARTIAL THROMBOPLASTIN TIME 90.6 SECONDS (24.8-34.2)
[2023-09-19 06:12] LABS: BLOOD UREA NITROGEN 22 MG/DL (9-23); CALCIUM LEVEL 8.8 MG/DL (8.3-10.6); CARBON DIOXIDE LEVEL 29 MMOL/L (20-31); CHLORIDE LEVEL 105 MMOL/L (98-107); CREATININE FOR GFR 0.97 MG/DL (0.70-1.30); GLOMERULAR FILTRATION RATE > 60.0 (>35); GLUCOSE, FASTING 78 MG/DL (74-106); MAGNESIUM LEVEL 2.2 MG/DL (1.8-2.4); POTASSIUM SERUM 3.9 MMOL/L (3.5-5.1); SODIUM LEVEL 138 MMOL/L (136-145)
[2023-09-19] MEDS: INSULIN LISPRO (NovoLOG) PER UNIT SC SCH ×4 (07:30→20:30)
[2023-09-19] MEDS: ASCORBIC ACID 500 MG TAB PO SCH (09:20)
[2023-09-19] MEDS: PANTOPRAZOLE 40MG VIAL IV SCH (09:20)
[2023-09-19] MEDS: HumuLIN (NovoLIN)70/30 INSULIN INJ PER UNIT SC SCH (09:20)
[2023-09-19] MEDS: SPIRONOLACTONE 12.5MG PER 1/2 TABLET PO SCH (09:21)
[2023-09-19] MEDS: HEPARIN DRIP 25,000 UNITS in IV 1 EA IV SCH (12:41)
[2023-09-19] MEDS: HumuLIN N INSULIN (NovoLIN N) PER UNIT SC SCH (21:09)
[2023-09-19] MEDS: SIMVASTATIN 20 MG TAB PO SCH (21:09)
[2023-09-19] MEDS: ramipriL 5 MG CAP PO SCH (21:10)
[2023-09-19] MEDS: LATANOPROST 0.005% OPHTH SOLN 2.5 ML OU SCH (21:13)
[2023-09-20] VITALS (20 sets, daily range): BP systolic 143–176; BP diastolic 63–84; TEMP 97–97.3; O2SAT 92–100
[2023-09-20] MEDS ORDERED: ACETAMINOPHEN *IV* 1,000 MG in IV 1 EA IV ONE (03:00)
[2023-09-20 05:42] LABS: BASO # 0.1 10^3/uL (0.0-0.2); BASO % 0.9 % (0.0-1.0); EOS # 0.2 10^3/uL (0.0-0.5); EOS % 2.8 % (0.0-3.0); HEMATOCRIT 43.7 % (42.0-52.0); HEMOGLOBIN 14.8 g/dl (13.5-17.5); LYMPH # 0.7 10^3/uL (1.5-5.0); LYMPH % 10.7 % (24.0-44.0); MEAN CORPUSCULAR HEMOGLOBIN 27.6 pg (27.0-33.0); MEAN CORPUSCULAR HGB CONC 33.9 g/dl (32.0-36.5); MEAN CORPUSCULAR VOLUME 81.5 fl (80.0-96.0); MONO # 0.7 10^3/uL (0.0-0.8); MONO % 9.7 % (2.0-8.0); NEUTROPHILS # 5.2 10^3/uL (1.5-8.5); NEUTROPHILS % 75.3 % (36.0-66.0); PLATELET COUNT, AUTOMATED 150 10^3/uL (150-450); RED BLOOD COUNT 5.36 10^6/uL (4.30-6.10); WHITE BLOOD COUNT 6.8 10^3/uL (4.0-10.0)
[2023-09-20 06:08] LABS: BLOOD UREA NITROGEN 23 MG/DL (9-23); CALCIUM LEVEL 8.8 MG/DL (8.3-10.6); CARBON DIOXIDE LEVEL 27 MMOL/L (20-31); CHLORIDE LEVEL 106 MMOL/L (98-107); CREATININE FOR GFR 0.97 MG/DL (0.70-1.30); GLOMERULAR FILTRATION RATE > 60.0 (>35); GLUCOSE, FASTING 119 MG/DL (74-106); MAGNESIUM LEVEL 2.1 MG/DL (1.8-2.4); POTASSIUM SERUM 3.8 MMOL/L (3.5-5.1); SODIUM LEVEL 140 MMOL/L (136-145)
[2023-09-20] MEDS: SPIRONOLACTONE 12.5MG PER 1/2 TABLET PO SCH (09:36)
[2023-09-20] MEDS: ASCORBIC ACID 500 MG TAB PO SCH (09:36)
[2023-09-20] MEDS: PANTOPRAZOLE 40MG VIAL IV SCH (09:36)
[2023-09-20] MEDS: HumuLIN (NovoLIN)70/30 INSULIN INJ PER UNIT SC SCH (09:37)
[2023-09-20] MEDS: INSULIN LISPRO (NovoLOG) PER UNIT SC SCH ×4 (09:37→21:00)
[2023-09-20] MEDS: HumuLIN N INSULIN (NovoLIN N) PER UNIT SC SCH (21:00)
[2023-09-20] MEDS: LATANOPROST 0.005% OPHTH SOLN 2.5 ML OU SCH (21:12)
[2023-09-20] MEDS: SIMVASTATIN 20 MG TAB PO SCH (21:12)
[2023-09-20] MEDS: ramipriL 5 MG CAP PO SCH (21:12)
[2023-09-20 23:24] LABS: HEMATOCRIT 44.5 % (42.0-52.0); HEMOGLOBIN 15.4 g/dl (13.5-17.5); MEAN CORPUSCULAR HGB CONC 34.6 g/dl (32.0-36.5); MEAN CORPUSCULAR VOLUME 80.9 fl (80.0-96.0); PLATELET COUNT, AUTOMATED 143 10^3/uL (150-450); WHITE BLOOD COUNT 8.4 10^3/uL (4.0-10.0)
[2023-09-21] VITALS (23 sets, daily range): BP systolic 130–162; BP diastolic 58–82; TEMP 96.7–97.1; O2SAT 95–100
[2023-09-21 07:35] LABS: BASO # 0.1 10^3/uL (0.0-0.2); BASO % 0.8 % (0.0-1.0); EOS # 0.3 10^3/uL (0.0-0.5); EOS % 3.3 % (0.0-3.0); HEMATOCRIT 44.9 % (42.0-52.0); HEMOGLOBIN 15.3 g/dl (13.5-17.5); LYMPH # 1.1 10^3/uL (1.5-5.0); LYMPH % 14.5 % (24.0-44.0); MEAN CORPUSCULAR HEMOGLOBIN 27.9 pg (27.0-33.0); MEAN CORPUSCULAR HGB CONC 34.1 g/dl (32.0-36.5); MEAN CORPUSCULAR VOLUME 81.8 fl (80.0-96.0); MONO # 0.6 10^3/uL (0.0-0.8); MONO % 8.4 % (2.0-8.0); NEUTROPHILS # 5.5 10^3/uL (1.5-8.5); NEUTROPHILS % 72.3 % (36.0-66.0); PLATELET COUNT, AUTOMATED 154 10^3/uL (150-450); RED BLOOD COUNT 5.49 10^6/uL (4.30-6.10); WHITE BLOOD COUNT 7.6 10^3/uL (4.0-10.0)
[2023-09-21 07:55] LABS: BLOOD UREA NITROGEN 22 MG/DL (9-23); CALCIUM LEVEL 8.9 MG/DL (8.3-10.6); CARBON DIOXIDE LEVEL 27 MMOL/L (20-31); CHLORIDE LEVEL 106 MMOL/L (98-107); CREATININE FOR GFR 0.94 MG/DL (0.70-1.30); GLOMERULAR FILTRATION RATE > 60.0 (>35); GLUCOSE, FASTING 142 MG/DL (74-106); MAGNESIUM LEVEL 2.1 MG/DL (1.8-2.4); POTASSIUM SERUM 4.5 MMOL/L (3.5-5.1); SODIUM LEVEL 138 MMOL/L (136-145)
[2023-09-21] MEDS ORDERED: MAGNESIUM CITRATE 300ML BTL PO ONE (09:00)
[2023-09-21] MEDS ORDERED: BISACODYL 5MG TAB PO PRN (09:00)
[2023-09-21] MEDS: SENOKOT S TAB PO SCH ×2 (09:03→21:00)
[2023-09-21] MEDS: CHLORTHALIDONE 12.5MG PER 1/2 TABLET PO SCH (09:03)
[2023-09-21] MEDS: PANTOPRAZOLE 40MG VIAL IV SCH (09:03)
[2023-09-21] MEDS: SPIRONOLACTONE 12.5MG PER 1/2 TABLET PO SCH (09:03)
[2023-09-21] MEDS: HumuLIN (NovoLIN)70/30 INSULIN INJ PER UNIT SC SCH (09:04)
[2023-09-21] MEDS: ASCORBIC ACID 500 MG TAB PO SCH (09:05)
[2023-09-21] MEDS: INSULIN LISPRO (NovoLOG) PER UNIT SC SCH ×4 (09:05→21:00)
[2023-09-21] MEDS ORDERED: HEPARIN DRIP 25,000 UNITS in IV 1 EA IV SCH (11:00)
[2023-09-21] MEDS ORDERED: HEPARIN SOD (PORCINE) 5000UNITS/ML 1ML VIAL/SYRINGE IV PRN (11:00)
[2023-09-21] MEDS ORDERED: APIXABAN 5 MG TAB (ELIQUIS) PO SCH (11:05)
[2023-09-21] MEDS ORDERED: ELIQ5TAB PO (11:11)
[2023-09-21] MEDS: LATANOPROST 0.005% OPHTH SOLN 2.5 ML OU SCH (21:27)
[2023-09-21] MEDS: ramipriL 5 MG CAP PO SCH (21:27)
[2023-09-21] MEDS: SIMVASTATIN 20 MG TAB PO SCH (21:27)
[2023-09-21] MEDS: APIXABAN 5 MG TAB (ELIQUIS) PO SCH (21:27)
[2023-09-21] MEDS: HumuLIN N INSULIN (NovoLIN N) PER UNIT SC SCH (21:27)
[2023-09-22] VITALS (10 sets, daily range): BP systolic 124–142; BP diastolic 59–76; TEMP 96.1–97.3; O2SAT 96–99
[2023-09-22] MEDS: INSULIN LISPRO (NovoLOG) PER UNIT SC SCH ×2 (07:30→12:15)
[2023-09-22] MEDS: HumuLIN (NovoLIN)70/30 INSULIN INJ PER UNIT SC SCH (08:50)
[2023-09-22] MEDS: SENOKOT S TAB PO SCH (09:00)
[2023-09-22] MEDS: PANTOPRAZOLE 40MG VIAL IV SCH (09:01)
[2023-09-22] MEDS: SPIRONOLACTONE 12.5MG PER 1/2 TABLET PO SCH (09:02)
[2023-09-22] MEDS: ASCORBIC ACID 500 MG TAB PO SCH (09:02)
[2023-09-22] MEDS: APIXABAN 5 MG TAB (ELIQUIS) PO SCH (09:02)
[2023-09-28] MEDS ORDERED: APIXABAN 5 MG TAB (ELIQUIS) PO SCH (09:00)
== END 2023-09-22 12:57 | disposition home health service (06) | DRG 176 ==
LOC: M ED 17:53 → EDBD 17:53 → M ED INP 22:12 → M PCU 23:28
PROVIDERS: ADMIT Internal Medicine; ATTEND Internal Medicine
PROC: 0W9930Z Drainage of Right Pleural Cavity with Drainage Device, Percutaneous Approach (ICD-10-PCS; principal; 2023-09-19)
PROC: B246ZZZ Ultrasonography of Right and Left Heart (ICD-10-PCS; 2023-09-20)
DX: I26.99 Other pulmonary embolism without acute cor pulmonale (principal); J94.2 Hemothorax; J91.8 Pleural effusion in other conditions classified elsewhere; I10 Essential (primary) hypertension; E11.9 Type 2 diabetes mellitus without complications; E78.00 Pure hypercholesterolemia, unspecified; I44.7 Left bundle-branch block, unspecified; I27.20 Pulmonary hypertension, unspecified; I08.0 Rheumatic disorders of both mitral and aortic valves; Z95.5 Presence of coronary angioplasty implant and graft; Z79.82 Long term (current) use of aspirin; Z79.4 Long term (current) use of insulin; Z79.899 Other long term (current) drug therapy; Z20.822 Contact with and (suspected) exposure to COVID-19

== ENCOUNTER → 2023-12-09 | Outpatient (REF) | payer MEDICARE, OTHER ==
[~2023-12-09] MED LIST changes: +COMB0.2S OU; +ELIQ5TAB PO; +INDA2.5T2 PO; -INDA25TAB PO; +NITR4TASL SL; +NYST1POW9 TOP
[2023-12-09 12:29] LABS: INR 1.24; PARTIAL THROMBOPLASTIN TIME 33.9 SECONDS (24.8-34.2); PROTHROMBIN TIME 15.2 SECONDS (12.5-14.5)
== END ==
LOC: M SFHCCLAY 08:28
PROVIDERS: ATTEND Family Medicine
DX: I26.99 Other pulmonary embolism without acute cor pulmonale (principal); Z79.01 Long term (current) use of anticoagulants; I11.9 Hypertensive heart disease without heart failure

== ENCOUNTER → 2023-12-09 | Outpatient (REF) | payer MEDICARE, OTHER ==
[2023-12-09 14:42] LABS: BLOOD UREA NITROGEN 30 MG/DL (9-23); CALCIUM LEVEL 9.7 MG/DL (8.3-10.6); CARBON DIOXIDE LEVEL 31 MMOL/L (20-31); CHLORIDE LEVEL 101 MMOL/L (98-107); CREATININE FOR GFR 1.02 MG/DL (0.70-1.30); GLOMERULAR FILTRATION RATE > 60.0 (>35); GLUCOSE, FASTING 155 MG/DL (74-106); SODIUM LEVEL 137 MMOL/L (136-145)
== END ==
LOC: M LABDRAWC 11:46
PROVIDERS: ATTEND Internal Medicine Cardiovascular Disease
DX: I11.9 Hypertensive heart disease without heart failure (principal)

== ENCOUNTER → 2023-12-16 | Outpatient (REF) | payer MEDICARE, BC | LOC: M SFHCADAM 10:51 | PROVIDERS: ATTEND Family Medicine | DX: E11.311 Type 2 diabetes mellitus with unspecified diabetic retinopathy with macular edema (principal); I25.10 Atherosclerotic heart disease of native coronary artery without angina pectoris; I26.99 Other pulmonary embolism without acute cor pulmonale ==

== ENCOUNTER → 2024-06-16 | Outpatient (REF) | payer MEDICARE, BC ==
[~2024-06-16] MED LIST changes: -RAMI1CAP22 PO; -RAMI1CAP24 PO; +RAMI2.5C42 PO; +RAMI5CAP60 PO
[2024-06-16 13:33] LABS: BLOOD UREA NITROGEN 25 MG/DL (9-23); CALCIUM LEVEL 9.8 MG/DL (8.3-10.6); CARBON DIOXIDE LEVEL 33 MMOL/L (20-31); CHLORIDE LEVEL 101 MMOL/L (98-107); CREATININE FOR GFR 1.06 MG/DL (0.70-1.30); GLOMERULAR FILTRATION RATE > 60.0 (>35); GLUCOSE, FASTING 142 MG/DL (74-106); POTASSIUM SERUM 4.1 MMOL/L (3.5-5.1); SODIUM LEVEL 136 MMOL/L (136-145)
[2024-06-16 14:06] LABS: HEMOGLOBIN A1c 6.9 % (4.0-6.0)
== END ==
LOC: M SFHCCLAY 07:38
PROVIDERS: ATTEND Family Medicine
DX: E11.311 Type 2 diabetes mellitus with unspecified diabetic retinopathy with macular edema (principal)

== ENCOUNTER → 2024-08-23 | Outpatient (CLI) | payer MEDICARE, BC ==
[~2024-08-23] MED LIST changes: +NYST1POW3 TOP; -NYST1POW9 TOP
== END ==
LOC: M PLAIMG 08:59
PROVIDERS: ATTEND Physician Assistant
DX: I11.9 Hypertensive heart disease without heart failure (principal)

== ENCOUNTER → 2024-08-24 | Outpatient (CLI) | payer MEDICARE, BC | LOC: M RAD 07:07 | PROVIDERS: ATTEND Physician Assistant | DX: R93.89 Abnormal findings on diagnostic imaging of other specified body structures (principal); J90 Pleural effusion, not elsewhere classified | CPT/HCPCS: 71250; G0463 ==

== ENCOUNTER → 2024-12-16 | Outpatient (REF) | payer MEDICARE, BC ==
[2024-12-16 12:16] LABS: HEMATOCRIT 50.8 % (42.0-52.0); HEMOGLOBIN 16.7 g/dl (13.5-17.5); MEAN CORPUSCULAR HGB CONC 32.9 g/dl (32.0-36.5); MEAN CORPUSCULAR VOLUME 85.1 fl (80.0-96.0); PLATELET COUNT, AUTOMATED 155 10^3/uL (150-450); RED BLOOD COUNT 5.97 10^6/uL (4.30-6.10); WHITE BLOOD COUNT 6.8 10^3/uL (4.0-10.0)
[2024-12-16 12:36] LABS: ALBUMIN 3.9 G/DL (3.2-5.2); ALKALINE PHOSPHATASE 118 U/L (40-129); ALT/SGPT 12 U/L (7.0-40); AST/SGOT < 8 U/L (<34); BLOOD UREA NITROGEN 29 MG/DL (9-23); CALCIUM LEVEL 9.4 MG/DL (8.3-10.6); CARBON DIOXIDE LEVEL 33 MMOL/L (20-31); CHLORIDE LEVEL 101 MMOL/L (98-107); CHOLESTEROL LEVEL 123 MG/DL (<200); CHOLESTEROL RISK RATIO 3.75 (<5); CREATININE FOR GFR 1.12 MG/DL (0.70-1.30); GLOMERULAR FILTRATION RATE 63.6 (>35); GLUCOSE, FASTING 204 MG/DL (74-106); HDL CHOLESTEROL 32.8 MG/DL (>40); LDL CHOLESTEROL 70.6 MG/DL (<100); NON-HDL-C 90.2 MG/DL; POTASSIUM SERUM 4.4 MMOL/L (3.5-5.1); SODIUM LEVEL 141 MMOL/L (136-145); TOTAL PROTEIN 6.8 G/DL (5.7-8.2); TRIGLYCERIDES LEVEL 98 MG/DL (<150)
== END ==
LOC: M SFHCCLAY 07:48
PROVIDERS: ATTEND Family Medicine
DX: I26.99 Other pulmonary embolism without acute cor pulmonale (principal); E11.311 Type 2 diabetes mellitus with unspecified diabetic retinopathy with macular edema; E78.2 Mixed hyperlipidemia

== ENCOUNTER → 2025-06-08 | Outpatient (REF) | payer MEDICARE, BC ==
[2025-06-08 12:34] LABS: PLATELET COUNT, AUTOMATED 142 10^3/uL (150-450)
[2025-06-08 12:41] LABS: ALT/SGPT 14.0 U/L (7.0-40); AST/SGOT 12.0 U/L (<34); CALCIUM LEVEL 9.0 MG/DL (8.3-10.6); CARBON DIOXIDE LEVEL 32.0 MMOL/L (20-31); CHLORIDE LEVEL 102.0 MMOL/L (98-107); CHOLESTEROL LEVEL 114.0 MG/DL (<200); CHOLESTEROL RISK RATIO 3.7 (<5); CREATININE FOR GFR 1.05 MG/DL (0.70-1.30); GLOMERULAR FILTRATION RATE 68.3 (>35); LDL CHOLESTEROL 63.2 MG/DL (<100); NON-HDL-C 83.2 MG/DL; POTASSIUM SERUM 4.1 MMOL/L (3.5-5.1); SODIUM LEVEL 135.0 MMOL/L (136-145); TRIGLYCERIDES LEVEL 100.0 MG/DL (<150)
[2025-06-08 13:50] LABS: ESTIMATED AVERAGE GLUCOSE 171.0 MG/DL (60-110)
== END ==
LOC: M SFHCCLAY 08:27
PROVIDERS: ATTEND Family Medicine
DX: I25.10 Atherosclerotic heart disease of native coronary artery without angina pectoris (principal); I26.99 Other pulmonary embolism without acute cor pulmonale; E11.311 Type 2 diabetes mellitus with unspecified diabetic retinopathy with macular edema; E78.2 Mixed hyperlipidemia